=== PATIENT | male | born 1970 ===

== ENCOUNTER 2021-08-13 18:38 | Observation (INO) | payer OTHER ==
[2021-08-13] MEDS ORDERED: Sodium Chloride 0.9% 10 ML Syringe FLUSH PRN (18:48)
[2021-08-13] MEDS ORDERED: Acetaminophen 325 MG Tab PO PRN (19:55)
[2021-08-13] MEDS: Potassium Chloride 10% 20 MEQ/15 ML Soln 15 ML UD Cup PO ONE (20:08)
[2021-08-13] MEDS: Thiamine 200 MG in Sodium Chloride 0.9% 100 ML IV ONE (20:09)
[2021-08-13] MEDS: Sodium Chloride 0.9% 1,000 ML IV SCH (20:10)
[2021-08-13] MEDS ORDERED: LORazepam 2 MG/ML SDV IVPUSH PRN (22:51)
[2021-08-14 08:15] VITALS: BP 137/80; PULSE 84
== END 2021-08-14 09:10 | disposition home or self-care (01) ==
LOC: LB.ED 18:38 → LB.MS 19:55 → UNDOADMOB 20:35 → LB.MS 20:35 → UNDODISOB 08-14 09:10
PROVIDERS: ADMIT Physician Assistant; ATTEND Physician Assistant
DX: R55 Syncope and collapse (principal); F10.920 Alcohol use, unspecified with intoxication, uncomplicated; E87.6 Hypokalemia; Z88.8 Allergy status to other drugs, medicaments and biological substances; Z79.899 Other long term (current) drug therapy; Z20.822 Contact with and (suspected) exposure to COVID-19
CPT/HCPCS: 36415; 71045; 80048; 80307; 81001; 82947; 83605; 83735; 84132; 84484; 85025; 87635; 93005; 96374; 99285; A9270; G0378; J3411; J3490; J7030; 93010; U0002

== ENCOUNTER 2022-11-27 11:42 | Emergency (ER) | payer OTHER ==
[2022-11-27] MEDS ORDERED: Sodium Chloride 0.9% 10 ML Syringe FLUSH PRN (12:02)
[2022-11-27 12:11] LABS: BASOPHILS ABSOLUTE AUTO 0.08 K/uL (0.02-0.10); BASOPHILS PERCENT AUTO 0.8 % (0.0-0.5); EOSINOPHILS ABSOLUTE AUTO 0.09 K/uL (0.04-0.40); EOSINOPHILS PERCENT AUTO 0.9 % (1.0-5.0); HEMATOCRIT 49.4 % (40.0-54.0); HEMOGLOBIN 17.5 g/dL (13.0-18.0); LYMPHOCYTES ABSOLUTE AUTO 3.05 K/uL (1.50-4.00); LYMPHOCYTES PERCENT AUTO 29.3 % (20.0-40.0); MEAN CORPUSCULAR HEMOGLOBIN 33.6 pg (27.0-32.0); MEAN CORPUSCULAR HGB CONC 35.4 g/dL (31.0-35.0); MEAN CORPUSCULAR VOLUME 95 fL (76-96); MEAN PLATELET VOLUME 8.8 fL (6.0-10.0); MONOCYTES ABSOLUTE AUTO 0.78 K/uL (0.20-0.80); MONOCYTES PERCENT AUTO 7.5 % (3.0-10.0); NEUTROPHILS ABSOLUTE AUTO 6.42 K/uL (2.00-7.50); NEUTROPHILS PERCENT AUTO 61.5 % (45.0-70.0); PLATELET COUNT,PLT 265 K/uL (150-400); RED BLOOD CELL COUNT 5.21 M/uL (4.50-6.50); RED CELL DISTRIBUTION WIDTH 13.1 % (11.0-16.0); WHITE BLOOD CELL COUNT,WBC 10.4 K/uL (4.0-11.0)
[2022-11-27] MEDS ORDERED: Sodium Chloride 0.9% 1,000 ML IV SCH ×2 (12:15→13:15)
[2022-11-27 12:42] LABS: A/G RATIO 0.9 (0.8-2.0); ALANINE AMINOTRANSFERASE,ALT 56 U/L (12-78); ALBUMIN 3.3 g/dL (3.4-5.0); ALKALINE PHOSPHATASE 149 U/L (46-116); ANION GAP 15.5 mmol/L (5.0-15.0); ASPARTATE AMNIOTRANSFERASE,AST 63 U/L (15-37); BILIRUBIN TOTAL 1.9 mg/dL (0.0-1.0); BLOOD UREA NITROGEN,BUN 4 mg/dL (8-26); BUN/CREATININE RATIO 4.9 (6-25); CALCIUM 8.8 mg/dL (8.5-10.1); CARBON DIOXIDE,CO2 26.2 mmol/L (21.0-32.0); CHLORIDE,CL 103 mmol/L (98-107); CREATININE 0.81 mg/dL (0.70-1.30); ESTIMATED GFR 105 mL/min (>60); GLUCOSE RANDOM 101 mg/dL (74-100); MAGNESIUM 1.7 mg/dL (1.8-2.4); PHOSPHORUS 2.7 mg/dL (2.5-4.9); POTASSIUM,K 3.7 mmol/L (3.5-5.1); PROTEIN TOTAL,TP 6.8 g/dL (6.4-8.2); SODIUM,NA 141 mmol/L (136-145); TROPONIN I HIGH SENSITIVITY 7.1 pg/ml (<=60.4)
[2022-11-27] MEDS ORDERED: LORazepam 2 MG/ML SDV ONE (12:42)
[2022-11-27] MEDS ORDERED: LORazepam 2 MG/ML SDV IVPUSH ONE (13:00)
[2022-11-27 13:06] LABS: APPEARANCE,URINE CLEAR (CLEAR); BILIRUBIN,URINE SMALL (NEGATIVE); COLOR,URINE YELLOW; GLUCOSE,URINE 100 mg/dL (NEGATIVE); KETONES,URINE 15 mg/dL (NEGATIVE); LEUKOCYTE ESTERASE,URINE NEGATIVE (NEGATIVE); NITRITE,URINE NEGATIVE (NEGATIVE); OCCULT BLOOD,URINE TRACE-INTACT (NEGATIVE); PROTEIN,URINE 100 mg/dL (NEGATIVE); UROBILINOGEN,URINE >=8.0 E.U./dL (0.2-1.0)
[2022-11-27 13:11] LABS: AMPHETAMINES SCREEN, URINE NEGATIVE (NEGATIVE); BARBITURATE SCREEN,URINE NEGATIVE (NEGATIVE); BENZODIAZEPINES SCREEN,URINE NEGATIVE (NEGATIVE); METHADONE SCREEN, URINE NEGATIVE (NEGATIVE); METHAMPHETAMINES SCREEN, URINE NEGATIVE (NEGATIVE); OXYCODONE SCREEN,URINE NEGATIVE (NEGATIVE); THC SCREEN,URINE 50 NG/ML POSITIVE (NEGATIVE)
[2022-11-27 13:16] LABS: COARSE GRANULAR CASTS,URINE OCCASIONAL /HPF; RBC,URINE 0-5 /HPF; SQUAMOUS EPITHELIAL CELLS,UR OCCASIONAL /HPF; WBC,URINE 0-5 /HPF
[2022-11-27] MEDS ORDERED: Diazepam 10 MG Tab PO ONE (13:44)
[2022-11-27] MEDS ORDERED: Diazepam 5 MG Tab ONE (15:14)
[2022-11-27 17:00] VITALS: BP 130/88; PULSE 90
== END 2022-11-27 17:06 | disposition home or self-care (01) ==
LOC: LB.ED 11:42
DX: F10.230 Alcohol dependence with withdrawal, uncomplicated (principal); Z88.6 Allergy status to analgesic agent
CPT/HCPCS: 36415; 71045; 80053; 80307; 81001; 82947; 83605; 83735; 84100; 84484; 85025; 85379; 93005; 93010; 96361; 96365; 96375; 99283; 99285-25; A9270-GY; J2060; J3475; J7030

== ENCOUNTER 2023-11-02 15:49 | Emergency (ER) | payer OTHER ==
[2023-11-02 16:12] LABS: BASOPHILS PERCENT AUTO 0.8 % (0.0-0.5); EOSINOPHILS ABSOLUTE AUTO 0.27 K/uL (0.04-0.40); EOSINOPHILS PERCENT AUTO 2.3 % (1.0-5.0); HEMATOCRIT 47.5 % (40.0-54.0); HEMOGLOBIN 16.6 g/dL (13.0-18.0); LYMPHOCYTES ABSOLUTE AUTO 5.74 K/uL (1.50-4.00); LYMPHOCYTES PERCENT AUTO 48.1 % (20.0-40.0); MEAN CORPUSCULAR HEMOGLOBIN 33.1 pg (27.0-32.0); MEAN CORPUSCULAR HGB CONC 34.9 g/dL (31.0-35.0); MEAN CORPUSCULAR VOLUME 95 fL (76-96); MEAN PLATELET VOLUME 9.2 fL (6.0-10.0); MONOCYTES ABSOLUTE AUTO 0.91 K/uL (0.20-0.80); MONOCYTES PERCENT AUTO 7.6 % (3.0-10.0); NEUTROPHILS ABSOLUTE AUTO 4.92 K/uL (2.00-7.50); NEUTROPHILS PERCENT AUTO 41.2 % (45.0-70.0); PLATELET COUNT,PLT 262 K/uL (150-400); RED BLOOD CELL COUNT 5.01 M/uL (4.50-6.50); RED CELL DISTRIBUTION WIDTH 13.3 % (11.0-16.0); WHITE BLOOD CELL COUNT,WBC 11.9 K/uL (4.0-11.0)
[2023-11-02] MEDS: Lactated Ringers 1,000 ML IV SCH (16:23)
[2023-11-02 16:46] LABS: APPEARANCE,URINE CLEAR (CLEAR); BILIRUBIN,URINE NEGATIVE (NEGATIVE); COLOR,URINE YELLOW; GLUCOSE,URINE NEGATIVE (NEGATIVE); KETONES,URINE NEGATIVE (NEGATIVE); LEUKOCYTE ESTERASE,URINE NEGATIVE (NEGATIVE); NITRITE,URINE NEGATIVE (NEGATIVE); OCCULT BLOOD,URINE NEGATIVE (NEGATIVE); PROTEIN,URINE NEGATIVE (NEGATIVE); UROBILINOGEN,URINE 0.2 E.U./dL (0.2-1.0)
[2023-11-02 16:48] LABS: A/G RATIO 0.9 (0.8-2.0); ALBUMIN 3.3 g/dL (3.4-5.0); ANION GAP 14.8 mmol/L (5.0-15.0); BILIRUBIN TOTAL 1.1 mg/dL (0.0-1.0); BUN/CREATININE RATIO 1.3 (6-25); CALCIUM 7.9 mg/dL (8.5-10.1); CARBON DIOXIDE,CO2 25.6 mmol/L (21.0-32.0); CREATININE 0.77 mg/dL (0.70-1.30); EST CRCL DRUG DOSING (CG) 120.38 mL/min; POTASSIUM,K 3.4 mmol/L (3.5-5.1); PROTEIN TOTAL,TP 6.9 g/dL (6.4-8.2)
[2023-11-02 17:22] LABS: AMPHETAMINES SCREEN, URINE POSITIVE (NEGATIVE); BARBITURATE SCREEN,URINE NEGATIVE (NEGATIVE); BENZODIAZEPINES SCREEN,URINE NEGATIVE (NEGATIVE); METHADONE SCREEN, URINE NEGATIVE (NEGATIVE); METHAMPHETAMINES SCREEN, URINE NEGATIVE (NEGATIVE); OXYCODONE SCREEN,URINE NEGATIVE (NEGATIVE); THC SCREEN,URINE 50 NG/ML NEGATIVE (NEGATIVE)
[2023-11-02 18:25] VITALS: BP 130/97; PULSE 85
== END 2023-11-02 18:17 | disposition home or self-care (01) ==
LOC: LB.ED 15:49
DX: F10.920 Alcohol use, unspecified with intoxication, uncomplicated (principal); E87.6 Hypokalemia; Z88.8 Allergy status to other drugs, medicaments and biological substances
CPT/HCPCS: 36415; 70450; 80053; 80307; 81003; 82947; 83735; 85025; 96360; 96361; 99285-25; J7120